=== PATIENT | female | born 1980 ===

== ENCOUNTER 2023-07-08 10:54 | Inpatient (IN) | payer OTHER ==
[~2023-07-08] VITALS: Ht 172.7 cm; Wt 112.0 kg
[2023-07-14 17:07] LABS: HEMOGLOBIN 9.1 g/dL (12.0-15.00); MEAN CORPUSCULAR HEMOGLOBIN 19.7 pg (27.00-32.0); MEAN CORPUSCULAR HGB CONC 31.2 g/dl (32.0-36.0); PLATELET COUNT 478 K/uL (150-450); RED BLOOD COUNT 4.58 M/uL (4.00-6.00); RED CELL DISTRIBUTION WIDTH 18.9 % (11.5-14.5)
[2023-07-14 17:30] LABS: MEAN CELL VOLUME 63.3 fL (80.00-100.00)
[2023-07-15 07:58] LABS: MEAN CORPUSCULAR HGB CONC 31.7 g/dl (32.0-36.0); PLATELET COUNT 439 K/uL (150-450); RED BLOOD COUNT 3.58 M/uL (4.00-6.00); RED CELL DISTRIBUTION WIDTH 18.8 % (11.5-14.5)
[2023-07-15 08:23] LABS: HEMATOCRIT 22.7 % (36.0-45.00); HEMOGLOBIN 7.2 g/dL (12.0-15.00); MEAN CELL VOLUME 63.4 fL (80.00-100.00); MEAN CORPUSCULAR HEMOGLOBIN 20.1 pg (27.00-32.0)
[2023-07-15] MEDS ORDERED: IRO-PLEX LIQUI120 ML (08:28)
[2023-07-15 09:56] LABS: MEAN CORPUSCULAR HGB CONC 31.5 g/dl (32.0-36.0); PLATELET COUNT 413 K/uL (150-450); RED BLOOD COUNT 3.44 M/uL (4.00-6.00); RED CELL DISTRIBUTION WIDTH 19.3 % (11.5-14.5)
[2023-07-15 10:03] LABS: HEMOGLOBIN 6.9 g/dL (12.0-15.00)
[2023-07-16 01:55] LABS: MEAN CELL VOLUME 70.6 fL (80.00-100.00); MEAN CORPUSCULAR HGB CONC 32.8 g/dl (32.0-36.0); PLATELET COUNT 242 K/uL (150-450); RED BLOOD COUNT 3.83 M/uL (4.00-6.00)
[2023-07-16 01:57] LABS: MEAN CORPUSCULAR HEMOGLOBIN 23.2 pg (27.00-32.0); RED CELL DISTRIBUTION WIDTH 24.9 % (11.5-14.5)
[2023-07-16 01:58] LABS: HEMOGLOBIN 8.9 g/dL (12.0-15.00)
[2023-07-16 09:58] LABS: HEMATOCRIT 30.1 % (36.0-45.00); HEMOGLOBIN 9.7 g/dL (12.0-15.00); MEAN CELL VOLUME 74.1 fL (80.00-100.00); MEAN CORPUSCULAR HGB CONC 32.4 g/dl (32.0-36.0); PLATELET COUNT 242 K/uL (150-450); RED BLOOD COUNT 4.06 M/uL (4.00-6.00)
[2023-07-16 09:59] LABS: RED CELL DISTRIBUTION WIDTH 25.8 % (11.5-14.5)
[2023-07-16 12:11] LABS: PH,URINE 5.5 (5.0-8.0); URINE APPEARANCE Clear; URINE BILIRRUBIN Negative (NEGATIVE); URINE BLOOD Small; URINE COLOR Yellow; URINE GLUCOSE Negative (NEGATIVE); URINE LEUKOCYTE Trace; URINE NITRATE Negative; URINE PROTEIN Negative (NEGATIVE); URINE UROBILINOGEN 0.2 E.U./dl
[2023-07-16 12:15] LABS: URINE BACTERIA 23.9 uL (0.0-1933); URINE EPITHELIAL CELLS 2.4 uL (0.0-38.8); URINE RBC 93.8 uL (0.0-20.8); URINE WBC 30.1 uL (0.0-23.2)
[2023-07-16 12:39] LABS: ABG PH 7.464 (7.35-7.45); ABG pCO2 36.7 mmHg (35-45)
[2023-07-16 12:40] LABS: ABG PO2 49.2 mmHg (80-100); BASE EXCESS 2.2 mmol/l; BICARBONATE 25.7 mmol/l (23-25); SaO2 87.2 %; Tco2 26.8 mmol/l; allen test SATISFACTORY; o2 21 %; puncture site RADIAL LEFT
[2023-07-16 13:03] LABS: CALCIUM 8.4 mg/dL (8.5-10.1); CREATININE SERUM 0.63 mg/dL (0.55-1.02); GFR 103.63; POTASSIUM 3.98 mEq/L (3.5-5.1)
[2023-07-16 15:03] LABS: ABG PH 7.436 (7.35-7.45); ABG PO2 67.7 mmHg (80-100); ABG pCO2 36.7 mmHg (35-45); BASE EXCESS 0.3 mmol/l; BICARBONATE 24.1 mmol/l (23-25); SaO2 93.9 %
[2023-07-16 15:04] LABS: Tco2 25.3 mmol/l; o2 100 %
[2023-07-16 15:05] LABS: allen test SATISFACTORY; puncture site RADIAL RIGHT
[2023-07-17 07:58] LABS: HEMATOCRIT 28.7 % (36.0-45.00); HEMOGLOBIN 9.3 g/dL (12.0-15.00); MEAN CELL VOLUME 74.2 fL (80.00-100.00); MEAN CORPUSCULAR HEMOGLOBIN 23.9 pg (27.00-32.0); MEAN CORPUSCULAR HGB CONC 32.2 g/dl (32.0-36.0); PLATELET COUNT 248 K/uL (150-450); RED BLOOD COUNT 3.87 M/uL (4.00-6.00)
[2023-07-17 08:01] LABS: RED CELL DISTRIBUTION WIDTH 26.3 % (11.5-14.5)
[2023-07-17 08:06] LABS: CALCIUM 8.1 mg/dL (8.5-10.1); CREATININE SERUM 0.64 mg/dL (0.55-1.02); GFR 101.76; MAGNESIUM 2.3 mg/dL (1.8-2.4); PHOSPHOROUS 2.4 mg/dL (2.5-4.9); POTASSIUM 4.21 mEq/L (3.5-5.1)
[2023-07-17 09:03] LABS: ABG PO2 168.6 mmHg (80-100); ABG pCO2 44.5 mmHg (35-45)
[2023-07-17 09:04] LABS: BASE EXCESS 1.7 mmol/l; BICARBONATE 26.9 mmol/l (23-25); SaO2 99.5 %; Tco2 28.3 mmol/l
[2023-07-17 09:05] LABS: allen test SATISFACTORY; o2 100 %; puncture site RADIAL RIGHT
[2023-07-18 07:39] LABS: HEMATOCRIT 29.4 % (36.0-45.00); HEMOGLOBIN 9.4 g/dL (12.0-15.00); PLATELET COUNT 273 K/uL (150-450); RED BLOOD COUNT 3.92 M/uL (4.00-6.00)
[2023-07-18 07:53] LABS: RED CELL DISTRIBUTION WIDTH 26.9 % (11.5-14.5)
[2023-07-20 08:41] LABS: CALCIUM 8.1 mg/dL (8.5-10.1); CREATININE SERUM 0.65 mg/dL (0.55-1.02); GFR 99.96; POTASSIUM 3.99 mEq/L (3.5-5.1)
[2023-07-20 09:06] LABS: HEMATOCRIT 29.2 % (36.0-45.00); HEMOGLOBIN 9.6 g/dL (12.0-15.00); MEAN CELL VOLUME 75.8 fL (80.00-100.00); MEAN CORPUSCULAR HEMOGLOBIN 24.9 pg (27.00-32.0); MEAN CORPUSCULAR HGB CONC 32.8 g/dl (32.0-36.0); PLATELET COUNT 258 K/uL (150-450); RED BLOOD COUNT 3.85 M/uL (4.00-6.00)
[2023-07-20 09:10] LABS: RED CELL DISTRIBUTION WIDTH 27.2 % (11.5-14.5)
[2023-07-21 10:25] LABS: ABG PH 7.466 (7.35-7.45); ABG PO2 69.7 mmHg (80-100); ABG pCO2 33.4 mmHg (35-45); BASE EXCESS 0.5 mmol/l; BICARBONATE 23.5 mmol/l (23-25); SaO2 94.9 %; Tco2 24.6 mmol/l
[2023-07-21 10:26] LABS: allen test SATISFACTORY; o2 21 %; puncture site RADIAL RIGHT
[2023-07-22] MEDS ORDERED: FAMOTIDINE20 MG PO (14:46)
[2023-07-22] MEDS ORDERED: ABANEU-SL TABL1 EACH SL (14:46)
[2023-07-22] MEDS ORDERED: FUSION PLUS CA1 EACH PO (14:46)
[2023-07-22] MEDS ORDERED: AMOX-CLAV 875-1 EAC1 PO (14:46)
[2023-07-22] MEDS ORDERED: INTESTINEX680 M1 PO (14:46)
== END 2023-07-22 17:40 | disposition home or self-care (01) | DRG 742 ==
LOC: O/R 07-14 05:31 → OB/GYN 07-14 05:31 → SURG 07-14 13:36 → OB/GYN 07-14 15:27 → SURH 07-16 12:20
PROVIDERS: Internal Medicine; Internal Medicine Geriatric Medicine; Internal Medicine Infectious Disease; ADMIT Obstetrics & Gynecology Gynecology; ATTEND Obstetrics & Gynecology Gynecology
PROC: 0UT90ZZ Resection of Uterus, Open Approach (ICD-10-PCS; 2023-07-14)
PROC: 0UT70ZZ Resection of Bilateral Fallopian Tubes, Open Approach (ICD-10-PCS; 2023-07-14)
PROC: 0UB00ZZ Excision of Right Ovary, Open Approach (ICD-10-PCS; principal; 2023-07-14 07:00)
PROC: 0KQ Muscles, Repair (ICD-10-PCS; 2023-07-15)
PROC: BU4CZZZ Ultrasonography of Uterus and Ovaries (ICD-10-PCS; 2023-07-15)
PROC: 30233N1 Transfusion of Nonautologous Red Blood Cells into Peripheral Vein, Percutaneous Approach (ICD-10-PCS; 2023-07-15)
PROC: 4A12X4Z Monitoring of Cardiac Electrical Activity, External Approach (ICD-10-PCS; 2023-07-16)
PROC: 4A033R1 Measurement of Arterial Saturation, Peripheral, Percutaneous Approach (ICD-10-PCS; 2023-07-16)
PROC: 3E0F7GC Introduction of Other Therapeutic Substance into Respiratory Tract, Via Natural or Artificial Opening (ICD-10-PCS; 2023-07-16)
PROC: BB24YZZ Computerized Tomography (CT Scan) of Bilateral Lungs using Other Contrast (ICD-10-PCS; 2023-07-16)
PROC: B246ZZZ Ultrasonography of Right and Left Heart (ICD-10-PCS; 2023-07-16)
PROC: 02HV33Z Insertion of Infusion Device into Superior Vena Cava, Percutaneous Approach (ICD-10-PCS; 2023-07-22)
DX: D25.1 Intramural leiomyoma of uterus (principal); I31.39 Other pericardial effusion (noninflammatory); I67.5 Moyamoya disease; I67.82 Cerebral ischemia; M96.831 Postprocedural hemorrhage of a musculoskeletal structure following other procedure; J91.8 Pleural effusion in other conditions classified elsewhere; J95.89 Other postprocedural complications and disorders of respiratory system, not elsewhere classified; J98.11 Atelectasis; D50.0 Iron deficiency anemia secondary to blood loss (chronic); D27.0 Benign neoplasm of right ovary; N83.01 Follicular cyst of right ovary; N84.1 Polyp of cervix uteri; R50.82 Postprocedural fever; R09.02 Hypoxemia; E66.9 Obesity, unspecified; R16.2 Hepatomegaly with splenomegaly, not elsewhere classified; Z20.822 Contact with and (suspected) exposure to COVID-19